=== PATIENT | female | born 1955 | race Caucasian/White ===

== ENCOUNTER 2021-10-28 13:53 | Emergency (ER) | payer MEDICARE ==
[~2021-10-28] VITALS: Ht 152.4 cm; Wt 50.8 kg
[~2021-10-28 13:53] MED LIST: AMBIEN5 MG PO; COZAAR50 MG PO; DAILY MULTIPLE1 EACH PO; PROTONIX40 MG PO; SOY MENOPAUSE55 MG PO
[2021-10-28] MEDS ORDERED: MELOXICAM15 MG PO (14:11)
[2021-10-28] MEDS ORDERED: SPIRONOLACTONE25 MG PO (14:12)
[2021-10-28] MEDS ORDERED: NEBIVOLOL HCL10 MG PO (14:12)
--- NOTE | 2021-10-29 18:00 | EKG ---
[facility] [address] [place], [place] [address] Signed Normal sinus rhythm Normal ECG No previous ECGs available Confirmed by BOOM CESPEDES DO ([id number]) on 10/29/2021 5:59:51 PM Electronically Signed By: BOOM CESPEDES DO 10/29/21 1800 PATIENT NAME: LANETTE KIRKLAND Electrocardiogram DATE OF : 51 PHYSICIAN: BOOM CESPEDES DO REPORT #: [id number] REPORT IS CONFIDENTIAL AND NOT TO BE RELEASED WITHOUT AUTHORIZATION
== END 2021-10-28 16:56 | disposition home or self-care (01) ==
LOC: ED 13:53
DX: R07.89 Other chest pain (principal); I10 Essential (primary) hypertension; M19.90 Unspecified osteoarthritis, unspecified site; Z88.2 Allergy status to sulfonamides; Z79.899 Other long term (current) drug therapy
CPT/HCPCS: 71045; 80048; 83735; 84484; 85025; 93005; 99285-25

== ENCOUNTER 2024-09-20 06:30 | Day surgery (SDC) | payer MEDICARE, OTHER ==
[~2024-09-20] VITALS: Ht 152.4 cm; Wt 47.7 kg
[~2024-09-20 06:30] MED LIST changes: +AMOX TR-K CLV1 EACH PO; +BENADRYL25 MG PO; +BYSTOLIC20 MG PO; +LEVOTHYROXINE75 MCG PO; +MELOXICAM15 MG PO; +MIDAZOLAM HCL 5 MG/5 ML VIAL IV PRN; +NAPROSYN500 MG PO; +NEBIVOLOL HCL10 MG PO; +SODIUM CHLORI1000 M2 PO; +SPIRONOLACTONE25 MG PO; +SPIRONOLACTONE50 MG PO; +fentaNYL citrate 100 MCG/2 ML VIAL IV PRN
[2024-09-20] MEDS ORDERED: MIDAZOLAM HCL 5 MG/5 ML VIAL ONE (06:39)
[2024-09-20] MEDS ORDERED: fentaNYL citrate 100 MCG/2 ML VIAL ONE (06:40)
[2024-09-20 06:41] VITALS: BP 148/62
[2024-09-20] MEDS ORDERED: LACTATED RINGER'S 1,000 ML IV SCH (07:00)
[2024-09-20] MEDS ORDERED: LIDOCAINE HCL 1% 5 ML SDV INJ ONE (07:00)
[2024-09-20] MEDS ORDERED: IBLOOD GLUCOSE TEST STRIP 1 EA TEST VI PRN (07:00)
--- NOTE | 2024-09-20 07:03 | NUR ---
WARM BLANKETS ON. WONT SCAN PT SO MANUALLY PUT IN. MILADY HERE AND GOING TO RUN ERRANDS.
[2024-09-20] MEDS ORDERED: SODIUM CHLORI1000 M2 (07:11)
--- NOTE | 2024-09-20 07:24 | NUR ---
VISITED DURING SPIRITUAL CARE ROUNDS. PT SUPPORTED BY ENROLLMENT COUNSELOR IN ROOM, BOTH IN OVERALL GOOD SPIRITS, NO OVERT SIGNS OF ANXIETY. [employer]CR[employer]E [employer] SUPERVISOR PROVIDED SUPPORTIVE PRESENCE, HOSPITALITY, PRAYER, FACILITATED INTERACTION WITH THERAPY ANIMAL. PT AND ENROLLMENT COUNSELOR EXPRESSED GRATITUDE.
--- NOTE | 2024-09-20 08:17 | NUR ---
09/20/24 0817 Paulina Wells OXYGEN SATURATION REMAINS 100% ON 3L VIA NC. OXYGEN IS REDUCED TO 1L VIA NC.
[2024-09-20 09:01] VITALS: BP 129/78
--- NOTE | 2024-09-22 10:27 | OR ---
[facility] [address] [place], [place] [address] Signed DATE OF OPERATION: 09/20/2024 SURGEON: Ld Chandra MD PREOPERATIVE DIAGNOSIS: Family history of colon cancer (mother). POSTOPERATIVE DIAGNOSIS: Normal colon to cecum. PROCEDURE: Total colonoscopy to cecum. ANESTHESIA: Intravenous sedation; fentanyl 100 mcg and Versed 4 mg. INDICATION: This 68-year-old white woman is a patient of NICOLA Andrews. She underwent colonoscopy in 2012, which was normal. She does have family history of colon cancer including her mother who at age 51 from the disease. She has no current symptoms of bleeding or diarrhea, although occasionally does have constipation. She has had no blood per rectum. She also has urinary tract infection and is noted to have chronic hyponatremia for which she takes a sodium supplement. She is admitted at this time to undergo colonoscopy. She understands the risk of bleeding, infection, and perforation. FINDINGS: The prep was excellent. Complete colonoscopy was undertaken of the cecum with intubation of the cecum. There was no evidence of polyps, diverticular formation, colitis, or cancer. DESCRIPTION OF PROCEDURE: The patient was brought to the endoscopy suite and placed in the lateral decubitus position, given intravenous sedation to the point of slurred speech and nystagmus. Digital rectal examination was normal. An Olympus video colonoscope was passed in the rectum and manipulated throughout the colon ultimately intubating the cecum itself. The ileocecal valve and appendiceal orifice were normal. The scope was withdrawn from that point and examination showed no sign of abnormality, specifically no polyps, diverticular formation, colitis, or cancer. Retroflexed view of the rectum was normal as well. The scope was removed and the Electronically Signed By: LD CHANDRA MD 09/22/24 1027 PATIENT NAME: LANETTE KIRKLAND OPERATIVE REPORT DATE OF : 51 REPORT #: [id number] PHYSICIAN: LD CHANDRA MD PCP: CATHERINE CALDERÓN REPORT IS CONFIDENTIAL AND NOT TO BE RELEASED WITHOUT AUTHORIZATION [facility] [address] [place], [place] [address] Signed patient was taken to the recovery room in good condition. CONCLUDING DIAGNOSIS: Normal colon to cecum. PLAN: Recommend repeat colonoscopy in 5 years based on [employer] [place] [employer] guidelines. She will return to the ongoing care of NICOLA Andrews. Ld Chandra MD JM/MODL /[id number] cc: NICLOA Andrews Copies: CATHERINE CALDERÓN ~ Electronically Signed By: LD CHANDRA MD 09/22/24 1027 PATIENT NAME: LANETTE KIRKLAND OPERATIVE REPORT DATE OF : 51 REPORT #: [id number] PHYSICIAN: LD CHANDRA MD PCP: CATHERINE CALDERÓN REPORT IS CONFIDENTIAL AND NOT TO BE RELEASED WITHOUT AUTHORIZATION
== END 2024-09-20 09:10 | disposition home or self-care (01) ==
LOC: OPS 06:30 → DS 06:30 → OPS 07:30 → DS 14:00
PROVIDERS: ATTEND Surgery
PROC: 0DJD8ZZ Inspection of Lower Intestinal Tract, Via Natural or Artificial Opening Endoscopic (ICD-10-PCS; principal; 2024-09-20 07:30)
DX: Z12.11 Encounter for screening for malignant neoplasm of colon (principal); I10 Essential (primary) hypertension; E03.9 Hypothyroidism, unspecified; Z79.890 Hormone replacement therapy; Z79.899 Other long term (current) drug therapy; Z90.710 Acquired absence of both cervix and uterus; Z80.0 Family history of malignant neoplasm of digestive organs
CPT/HCPCS: 99153; G0500; J2250; J3010; J7121